=== PATIENT | male | born 1955 | race Caucasian/White ===

== ENCOUNTER → 2016-11-06 | Day surgery (SDC) | payer OTHER ==
[~2016-11-06] VITALS: Ht 175.3 cm; Wt 83.9 kg
[~2016-11-06] MED LIST: ASPIRIN EC81 M1 PO; CRESTOR40 M2 PO
--- NOTE | 2016-11-06 11:10 | Operative Report ---
Operative/Inv Procedure Report Surgery Date: 11/06/16 Name of Procedure: Right shoulder arthroscopy, subacromial decompression, distal clavicle resection , subpectoral biceps tenodesis, arthroscopic subscapularis repair, arthroscopic supraspinatus/infraspinatus repair, extensive debridement. 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 He has had worsening shoulder pain. MRI showed rotator cuff tear and dislocated biceps tendon. Risks and benefits of the procedure were discussed with the patient at length. Risks include but are not limited to nerve damage, muscle damage, infection, blood loss, blood clots, pulmonary embolus, and even . The patient agreed to the above risks and elected to proceed with surgery. Operative/Procedure Note Note: The patient was taken to the operating room and placed in the lateral decubitus position with the operative side up after anesthesia was induced. The upper extremity was prepped and draped in the normal sterile fashion. A timeout was performed prior to incision. The site marking was visualized prior to incision. IV antibiotics were given prior to incision. After the upper extremity was prepped and draped a spinal needle was used to insufflate the shoulder joint with saline. An 11 blade was used to incise the skin for the posterior portal placement. The cannula was then placed. The camera was inserted. An anterior portal was established just proximal and lateral to the coracoid with a spinal needle and an 11 blade. The diagnostic arthroscopy was then performed which showed the above findings. Shaver was used to debride the anterior inferior, superior labrum, and posterior. A wand was used to perform a biceps tenotomy. The shaver was also used to prepare the footprint of the supraspinatus and infraspinatus. The undersurface of the infraspinatus and supraspinatus was debrided. A shaver was then used to clear off the subscapularis footprint on the lesser tuberosity. The leading edge of the subscapularis was debrided with a shaver. A 5.5 mm helicoill anchor was then placed through the anterior portal. A cannula was placed to the anterior portal. Two sutures were then passed in a Krakw type fashion through the upper rolled border of the subscapularis. These were then tied down which served to reduce the subscapularis tendon back to the footprint. The excess suture was cut. Next the subacromial space was entered through the posterior portal. A lateral portal was established with a spinal needle and an 11 blade. A blunt probe was inserted through the lateral portal. Next the shaver was inserted and a subacromial bursectomy was performed. Any bleeding vessels were identified and cauterized. The shaver was used to debride any bursal tissue on the undersurface of the acromion and surrounding the humeral head. The coracoacromial ligament was taken down with a wand. Care was taken to protect the rotator cuff tissue and only take bursal tissue. A wand was then used to further take down the soft tissue on the undersurface of the acromion. A bur was then inserted and the acromioplasty was then begun starting at the anterolateral edge of the acromion. This was extended down to the level of the acromioclavicular joint. This was then tapered further posteriorly. The leading edge of the supraspinatus was taken down as the fibers were quite thinned out and friable. An 8 mm PassPort cannula was placed through the lateral portal site. A 6 mm PassPort cannula was placed through the anterior portal. An accessory portal was made just off of the lateral border the acromion with a spinal needle and an 11 blade. An 8 mm PassPort cannula was placed through this. The bur was used to prepare the rotator cuff footprint back to a healthy bed of bleeding bone for later rotator cuff repair. Any bursal adhesions superior to the rotator cuff were taken cassy with a shaver. A tap was used and a 5.5 mm helicoil anchor was placed just lateral to the articular surface in the rotator cuff footprint. An expressew needle was then used to shuttle the sutures from front to back. The medial row was tied down with a locking knot and several half hitches. The sutures were then crisscrossed over the top and fixed with 1 lateral row multifix anchor. This afforded excellent compression of the rotator cuff. The excess suture was then cut. A switching stick was brought through the anterior portal for localization at the acromioclavicular joint. Next the wand was then brought through the anterior portal and the soft tissue on the undersurface of the acromioclavicular joint was then taken down. The bur was then used to resect the distal clavicle taking care to protect the posterior and superior acromioclavicular ligaments. The distal clavicle was excised and the space between the distal clavicle and acromion was noted to be without any bony impingement. The wand was used to further debride the acromioclavicular joint of any soft tissue interposition. The ligaments were well protected. A 1/8 inch Hemovac drain was placed through the posterior portal. An incision was then made in the axillary fold. Blunt dissection was performed and the pectoralis major tendon was identified. A Hohmann retractor was inserted deep to this to expose the bicipital groove. The biceps tendon was then delivered from the wound and whipstitched starting at the musculotendinous junction. It extended proximally. The excess tendon was cut. The bicipital groove was then cleared off of any soft tissue. A guidewire was then drilled from an anterior to posterior direction in the groove. A 7 mm reamer was then used over the wire to drill the anterior cortex. A 7 x 10 mm Arthrex peek tenodesis screw was then inserted after the biceps tendon was delivered into the drill hole. The screw was then tightened down flush with the anterior humeral cortex. The sutures were then tied over the top. The excess suture was cut. The wound was copiously irrigated. The skin was closed with 2-0 vicryl suture in a simple interrupted fashion and a running subcuticular 4-0 Monocryl stitch. Dermabond was applied. All instruments were removed and the shoulder was copiously irrigated. The portal sites were closed with 3-0 nylon suture in a simple interrupted fashion. A dry sterile dressing was placed. A sling was applied. The patient was transferred to PACU in stable condition. Findings: Upper third tear of the subscapularis. Biceps tendon dislocation and fraying. Degenerative SLAP tear. Degenerative tearing of the anterior inferior labrum. Mild posterior labral tearing. Glenohumeral articular cartilage with grade 2 chondral changes. No loose bodies noted. High-grade partial-thickness tearing of the supraspinatus and infraspinatus involving 80% of the footprint. Subacromial hook present. Acromioclavicular joint arthrosis present.
== END ==
LOC: STS 02:42
DX: M75.101 Unspecified rotator cuff tear or rupture of right shoulder, not specified as traumatic (principal); M19.011 Primary osteoarthritis, right shoulder; I25.2 Old myocardial infarction; Z87.891 Personal history of nicotine dependence
CPT/HCPCS: J0131; J0171; J0690; J2250; J2795